=== PATIENT | female | born 1990 | race Caucasian/White ===

== ENCOUNTER 2022-09-27 16:18 | Emergency (ER) | payer MEDICAID ==
[2022-09-27] MEDS ORDERED: Acetaminophen/HYDROcodone 325-5 MG Tab PO ONE (17:02)
== END 2022-09-27 18:55 | disposition home or self-care (01) ==
LOC: JD.ED 16:18
DX: M54.50 Low back pain, unspecified (principal); R31.0 Gross hematuria; Z86.16 Personal history of COVID-19
CPT/HCPCS: 99283; A9270

== ENCOUNTER 2022-09-28 11:07 | Emergency (ER) | payer SELFPAY | END 2022-09-28 11:12 | disposition left against medical advice (07) | LOC: JD.ED 11:07 | DX: Z53.21 Procedure and treatment not carried out due to patient leaving prior to being seen by health care provider (principal) ==

== ENCOUNTER 2025-01-26 18:00 | Emergency (ER) | payer SELFPAY ==
[2025-01-26] MEDS ORDERED: LORazepam 2 MG/ML SDV ONE (18:01)
[2025-01-26] MEDS ORDERED: Sodium Chloride 0.9% 10 ML Syringe FLUSH PRN (18:25)
[2025-01-26 18:28] LABS: BASOPHILS ABSOLUTE AUTO 0.1 K/mm3 (0.0-0.2); BASOPHILS PERCENT AUTO 0.7 % (0.0-1.0); EOSINOPHILS ABSOLUTE AUTO 0.0 K/mm3 (0.0-0.4); EOSINOPHILS PERCENT AUTO 0.2 % (0.0-6.0); IMMATURE GRAN ABSOLUTE AUTO 0.08 K/mm3 (0.00-0.05); IMMATURE GRAN PERCENT AUTO 0.6 % (0.0-0.4); LYMPHOCYTES ABSOLUTE AUTO 2.3 K/mm3 (1.0-4.8); LYMPHOCYTES PERCENT AUTO 18.2 % (24.0-44.0); MEAN PLATELET VOLUME 9.6 fl (9.4-12.3); MONOCYTES ABSOLUTE AUTO 0.6 K/mm3 (0.0-0.8); MONOCYTES PERCENT AUTO 4.3 % (0.0-8.0); NEUTROPHILS ABSOLUTE AUTO 9.8 K/mm3 (1.8-7.7); NEUTROPHILS PERCENT AUTO 76.0 % (41.0-71.0); NRBC ABSOLUTE 0.00 (0.00-0.02); NRBC PERCENT 0.0 % (0.0-0.2); PLATELET COUNT,PLT 402 K/mm3 (150-400); RED BLOOD CELL COUNT 4.45 M/mm3 (4.10-5.30); WHITE BLOOD CELL COUNT,WBC 12.88 K/mm3 (3.9-11.3)
[2025-01-26] MEDS: LORazepam 2 MG/ML SDV IM ONE (18:42)
[2025-01-26] MEDS: diphenhydrAMINE 50 MG/ML SDV IVPUSH ONE (18:49)
[2025-01-26 18:58] LABS: A/G RATIO 1.2 (1-2); ALANINE AMINOTRANSFERASE,ALT 29 U/L (14-59); ASPARTATE AMNIOTRANSFERASE,AST 28 U/L (15-37); BILIRUBIN TOTAL 1.1 mg/dL (0.2-1.0); BLOOD UREA NITROGEN,BUN 15 mg/dL (7-18); CARBON DIOXIDE,CO2 19 mEq/L (21-32); CHLORIDE,CL 104 mEq/L (98-107); CREATININE 1.1 mg/dL (0.55-1.02); ESTIMATED GFR 68 mL/min (>60); ETHANOL BLOOD MEDICAL 0.24 gm% (0.00); GLUCOSE RANDOM 112 mg/dL (70-99); POTASSIUM,K 3.9 mEq/L (3.5-5.1); PROTEIN TOTAL,TP 7.8 g/dl (6.4-8.2); SODIUM,NA 139 mEq/L (136-145); TSH 2.497 uIU/mL (0.358-3.74)
[2025-01-26 19:00] LABS: HCG QUANTITATIVE < 1.0 mIU/mL
== END 2025-01-26 23:00 ==
LOC: EDBD → MERGE 18:00 → JD.ED 18:00
DX: Z02.89 Encounter for other administrative examinations (principal); S01.81XA Laceration without foreign body of other part of head, initial encounter; E86.0 Dehydration; W22.8XXA Striking against or struck by other objects, initial encounter
CPT/HCPCS: 12011; 36415; 80053; 80143; 80179; 80307; 84443; 84702; 85025; 96360; 96372; 99285; J2003; J2060; J2359; J7030; 99282